=== PATIENT | male | born 1950 | race Hispanic/Latino ===

== ENCOUNTER 2019-08-06 11:00 | Inpatient (IN) | payer OTHER, MEDICARE ==
[~2019-08-06] VITALS: Ht 185.4 cm; Wt 101.7 kg
[2019-08-06 11:33] LABS: BASOPHILS % (AUTO) 0.6 % (0.0-5.0); EOSINOPHILS % (AUTO) 1.9 % (0.0-8.0); HEMATOCRIT 41.9 % (42-54); LYMPHOCYTES % (AUTO) 13.4 % (21.0-51.0); MEAN CORPUSCULAR HEMOGLOBIN 29.8 pg (27.0-33.0); MEAN CORPUSCULAR HGB CONC 35.1 g/dL (32.0-36.0); MEAN CORPUSCULAR VOLUME 84.8 fL (79-99); MONOCYTES % (AUTO) 8.5 % (3.0-13.0); NEUTROPHILS % (AUTO) 75.3 % (40.0-77.0); PLATELET COUNT (AUTO) 269 K/uL (130-400); RED BLOOD CELL COUNT(AUTO) 4.94 MIL/uL (4.50-6.20); RED CELL DISTRIBUTION WIDTH 15.3 % (11.0-15.5); WHITE BLOOD COUNT (AUTO) 7.9 K/uL (4.8-10.8)
[2019-08-06 11:51] LABS: INR 1.06 (0.85-1.15); PARTIAL THROMBOPLASTIN TIME 26.7 SEC (26.3-35.5); PROTHROMBIN TIME 11.4 SEC (9.6-11.6)
[2019-08-06 11:56] LABS: CREATININE 1.5 mg/dL (0.5-1.5); POTASSIUM 3.6 mmol/L (3.5-5.1)
[2019-08-06 12:09] LABS: ALBUMIN 3.4 g/dL (3.5-5.0); TOTAL PROTEIN, SERUM 7.3 g/dL (6.0-8.3)
[2019-08-06 12:10] LABS: BILIRUBIN,DIRECT 15.2 mg/dL (0.0-0.3); BILIRUBIN,TOTAL 18.9 mg/dL (0.2-1.0)
[2019-08-06] MEDS ORDERED: ZOSYN 3.375GM+NS 50ML 50 ML IV ONE (14:42)
[2019-08-06 17:49] VITALS: BP 126/68
[2019-08-06 20:00] VITALS: BP 140/72
[2019-08-06] MEDS ORDERED: ONDANSETRON 4 MG TABLET PO PRN (20:00)
[2019-08-06] MEDS ORDERED: POTASSIUM CHLORIDE 20 MEQ/100 ML BAG IV SCH (21:00)
[2019-08-06] MEDS: LACTATED RINGERS 1000ML 1,000 ML IV SCH (21:16)
[2019-08-06] MEDS: ZOSYN 3.375GM+NS 50ML 50 ML IV SCH (23:22)
[2019-08-06 23:54] VITALS: BP 127/58
[2019-08-07] VITALS (24 sets, daily range): BP systolic 114–171; BP diastolic 54–87
[2019-08-07] MEDS: LACTATED RINGERS 1000ML 1,000 ML IV SCH ×3 (02:40→22:40)
[2019-08-07 04:43] LABS: HEMATOCRIT 38.5 % (42-54); MEAN CORPUSCULAR HEMOGLOBIN 29.4 pg (27.0-33.0); MEAN CORPUSCULAR HGB CONC 34.8 g/dL (32.0-36.0); MEAN CORPUSCULAR VOLUME 84.4 fL (79-99); PLATELET COUNT (AUTO) 236 K/uL (130-400); RED BLOOD CELL COUNT(AUTO) 4.56 MIL/uL (4.50-6.20); RED CELL DISTRIBUTION WIDTH 15.5 % (11.0-15.5); WHITE BLOOD COUNT (AUTO) 7.1 K/uL (4.8-10.8)
[2019-08-07 05:13] LABS: ALBUMIN 2.8 g/dL (3.5-5.0); CREATININE 1.6 mg/dL (0.5-1.5); MAGNESIUM 1.8 mg/dL (1.80-2.40); POTASSIUM 3.9 mmol/L (3.5-5.1); TOTAL PROTEIN, SERUM 6.7 g/dL (6.0-8.3)
[2019-08-07 05:19] LABS: BILIRUBIN,TOTAL 16.6 mg/dL (0.2-1.0)
[2019-08-07] MEDS: ZOSYN 3.375GM+NS 50ML 50 ML IV SCH ×3 (06:52→23:00)
[2019-08-07] MEDS ORDERED: IOHEXOL-350 50ML VIAL IV ONE (07:52)
[2019-08-07] MEDS ORDERED: INDOMETHACIN 50 MG SUPP.RECT RC SCH (08:15)
[2019-08-07] MEDS ORDERED: PROPOFOL 10 MG/ML 20ML VIAL IV ONE ×2 (08:17→08:38)
[2019-08-07] MEDS ORDERED: SUCCINYLCHOLINE 200MG/10ML SYR ONE (08:17)
[2019-08-07] MEDS ORDERED: GLUCAGON 1MG KIT 1 MG ML ONE ×2 (08:37→09:24)
[2019-08-07] MEDS ORDERED: EPHEDRINE SULFATE 50 MG/ML AMPULE ONE (08:48)
--- NOTE | 2019-08-07 11:10 | NUR ---
POST ERCP PATIENT RECEIVED FROM GI LAB IN STABLE CONDITION. HE IS AWAKE AND ALERT WITH NO COMPLAINTS AT THIS TIME. POST OP V/S HAVE BEEN INITIATED. HE HAS BEEN ORIENTED TO ROOM AND USE OF CALL LIGHT. WILL CONTINUE TO MONITOR.
--- NOTE | 2019-08-07 11:22 | NUR ---
INITIAL SW spoke with patient. Patient states he lives with spouse, Amairani Tyler, [phone]. Emergency contact is daughter, Lili Tyler, [phone]. No home services. DME: [employer]. Patient states she is able to complete ADL's and drives. PCP is Dr. Donnie Ahn. Pharmacy is [facility] located in [place]. DCP is home. Addendum: 08/07/19 at 1124 by DONTA RAY SS Amended: Links added.
--- NOTE | 2019-08-07 12:19 | NUR ---
RD NOTIFICATION Pt admitted for Choledocolithiasis. Pt pending GI evaluation, MRI of abdomen. When medically feasible, recommend advance diet as tolerated to GI soft, low fat diet order. Noted, Lipase levels at 1638. RD to continue to monitor. Please notify PRINCESS as additional nutrition concerns arise. Addendum: 08/07/19 at [address] RD Amended: Links added.
[2019-08-08 04:00] VITALS: BP 137/64
[2019-08-08] MEDS: LACTATED RINGERS 1000ML 1,000 ML IV SCH ×2 (05:20→18:40)
[2019-08-08] MEDS: ZOSYN 3.375GM+NS 50ML 50 ML IV SCH ×3 (05:51→22:03)
[2019-08-08 08:55] VITALS: BP 129/73
[2019-08-08] MEDS ORDERED: LISI1TAB51 PO (10:46)
[2019-08-08] MEDS ORDERED: PRAV80TA21 PO (10:46)
[2019-08-08 14:31] VITALS: BP 144/67
[2019-08-08 17:01] VITALS: BP 138/78
[2019-08-08 20:00] VITALS: BP 144/77
[2019-08-09] VITALS (20 sets, daily range): BP systolic 110–163; BP diastolic 60–85
[2019-08-09] MEDS: LACTATED RINGERS 1000ML 1,000 ML IV SCH ×3 (01:20→21:20)
[2019-08-09 03:45] LABS: HEMATOCRIT 35.1 % (42-54); MEAN CORPUSCULAR HGB CONC 35.3 g/dL (32.0-36.0); MEAN CORPUSCULAR VOLUME 84.8 fL (79-99); PLATELET COUNT (AUTO) 211 K/uL (130-400); RED BLOOD CELL COUNT(AUTO) 4.14 MIL/uL (4.50-6.20); RED CELL DISTRIBUTION WIDTH 16.1 % (11.0-15.5); WHITE BLOOD COUNT (AUTO) 6.6 K/uL (4.8-10.8)
[2019-08-09] MEDS: ZOSYN 3.375GM+NS 50ML 50 ML IV SCH ×3 (05:36→23:46)
[2019-08-09 06:21] LABS: ALBUMIN 2.6 g/dL (3.5-5.0); CREATININE 1.5 mg/dL (0.5-1.5); MAGNESIUM 1.8 mg/dL (1.80-2.40); POTASSIUM 3.6 mmol/L (3.5-5.1); TOTAL PROTEIN, SERUM 6.1 g/dL (6.0-8.3)
[2019-08-09 06:33] LABS: BILIRUBIN,TOTAL 16.4 mg/dL (0.2-1.0)
[2019-08-09] MEDS ORDERED: IOHEXOL-350 50ML VIAL IV ONE (07:57)
[2019-08-09] MEDS ORDERED: INDOMETHACIN 50 MG SUPP.RECT RC SCH (09:00)
[2019-08-09] MEDS ORDERED: PROPOFOL 10 MG/ML 20ML VIAL IV ONE ×2 (09:06→09:23)
--- NOTE | 2019-08-09 10:25 | NUR ---
PROCEDURE REPORT RECEIVED FROM ALEX RN (PACU). PATIENT S/P EUS WITHOUT ERCP BY DR. KEYS. MASS IDENTIFIED IN THE PANCREATIC HEAD. BIOPSY SPECIMEN COLLECTED. PATIENT STABLE AT THIS TIME.
[2019-08-09] MEDS ORDERED: IOHEXOL 350 MG/ML 100ML INFUS..BTL IV ONE (12:05)
--- NOTE | 2019-08-09 16:30 | NUR ---
MD ROSA ISELA HOWARD ASSESSED PATIENT AND DISCUSSED EUS AND CT SCAN RESULTS. NOTIFIED PATIENT OF MASS TO HEAD OF PANCREAS. INSTRUCTED PATIENT TO FOLLOW UP IN OFFICE IN 1 WEEK FOR BIOPSY RESULTS AND WILL REFER PATIENT TO SPECIALIST FOR REMOVAL OF MASS. PATIENT'S DAUGHTER (MARGI) MADE AWARE. PATIENT VOICED UNDERSTANDING.
[2019-08-09] MEDS: ACETAMINOPHEN 325 MG TAB PO PRN (20:11)
[2019-08-10] VITALS (7 sets, daily range): BP systolic 128–164; BP diastolic 54–82
[2019-08-10] MEDS: LACTATED RINGERS 1000ML 1,000 ML IV SCH ×3 (03:53→17:38)
[2019-08-10] MEDS: ZOSYN 3.375GM+NS 50ML 50 ML IV SCH ×3 (05:59→22:34)
[2019-08-10] MEDS: ATORVASTATIN CALCIUM 20 MG TABLET PO SCH (21:00)
[2019-08-10] MEDS: ACETAMINOPHEN 325 MG TAB PO PRN (22:33)
[2019-08-11] VITALS (24 sets, daily range): BP systolic 139–182; BP diastolic 55–93
[2019-08-11] MEDS: LACTATED RINGERS 1000ML 1,000 ML IV SCH ×4 (00:22→20:08)
[2019-08-11 03:45] LABS: HEMATOCRIT 31.6 % (42-54); MEAN CORPUSCULAR HEMOGLOBIN 29.6 pg (27.0-33.0); MEAN CORPUSCULAR HGB CONC 35.8 g/dL (32.0-36.0); MEAN CORPUSCULAR VOLUME 82.7 fL (79-99); PLATELET COUNT (AUTO) 209 K/uL (130-400); RED BLOOD CELL COUNT(AUTO) 3.82 MIL/uL (4.50-6.20); WHITE BLOOD COUNT (AUTO) 5.8 K/uL (4.8-10.8)
[2019-08-11 03:58] LABS: ALBUMIN 2.1 g/dL (3.5-5.0); BILIRUBIN,TOTAL 14.1 mg/dL (0.2-1.0); CREATININE 1.4 mg/dL (0.5-1.5); MAGNESIUM 1.6 mg/dL (1.80-2.40); POTASSIUM 3.4 mmol/L (3.5-5.1); TOTAL PROTEIN, SERUM 5.4 g/dL (6.0-8.3)
[2019-08-11] MEDS: ZOSYN 3.375GM+NS 50ML 50 ML IV SCH ×3 (06:27→23:14)
[2019-08-11] MEDS ORDERED: IOHEXOL-350 50ML VIAL IV ONE (07:48)
[2019-08-11] MEDS: LISINOPRIL 20 MG TABLET PO SCH (09:00)
[2019-08-11] MEDS: HYDROCHLOROTHIAZIDE 25 MG TABLET PO SCH (09:00)
[2019-08-11] MEDS ORDERED: INDOMETHACIN 50 MG SUPP.RECT RC SCH (10:45)
[2019-08-11] MEDS ORDERED: MIDAZOLAM HCL 1 MG/ML 2ML VIAL ONE (10:45)
[2019-08-11] MEDS ORDERED: LIDOCAINE PF 2% 5ML ABBOJECT ONE (10:45)
[2019-08-11] MEDS ORDERED: PROPOFOL 10 MG/ML 20ML VIAL IV ONE (10:45)
[2019-08-11] MEDS ORDERED: SUCCINYLCHOLINE CHLORIDE 20 MG/ML 10 ML VIAL ONE (10:45)
[2019-08-11] MEDS ORDERED: ROCURONIUM 10MG/1ML SYR 10 MG/ML ML ONE (10:46)
[2019-08-11] MEDS ORDERED: FENTANYL CITRATE PF 50 MCG/1 ML 2ML VIAL ONE (10:46)
[2019-08-11] MEDS ORDERED: ONDANSETRON HCL 4 MG/2 ML VIAL ONE (10:48)
[2019-08-11] MEDS: MAGNESIUM 2GM PREMIX 50ML 50 ML IV SCH ×2 (11:30→15:25)
[2019-08-11] MEDS ORDERED: GLYCOPYRROLATE 0.2 MG/ML 5 ML VIAL ONE (12:08)
[2019-08-11] MEDS ORDERED: HYDRALAZINE HCL 20 MG/ML VIAL ONE (13:10)
[2019-08-11] MEDS: ATORVASTATIN CALCIUM 20 MG TABLET PO SCH (20:07)
[2019-08-12] MEDS: LACTATED RINGERS 1000ML 1,000 ML IV SCH ×2 (02:42→08:53)
[2019-08-12 04:00] VITALS: BP 126/58
[2019-08-12 05:09] LABS: HEMATOCRIT 33.7 % (42-54); MEAN CORPUSCULAR HEMOGLOBIN 28.7 pg (27.0-33.0); PLATELET COUNT (AUTO) 192 K/uL (130-400); RED BLOOD CELL COUNT(AUTO) 4.11 MIL/uL (4.50-6.20); RED CELL DISTRIBUTION WIDTH 16.4 % (11.0-15.5); WHITE BLOOD COUNT (AUTO) 6.8 K/uL (4.8-10.8)
[2019-08-12 05:16] LABS: BAND NEUTROPHILS % (MANUAL) 4 % (0-2); LYMPHOCYTES % (MANUAL) 8 % (22-44); MAN.DIFF COMMENT-IMPRESSION MANUAL DIFFERENTIAL; MONOCYTES % (MANUAL) 12 % (2-9); SEGMENTED NEUTROPHILS % 76 % (40-70)
[2019-08-12 05:17] LABS: PLATELET MORPHOLOGY COMMENT ADEQUATE
[2019-08-12 05:30] LABS: ALBUMIN 2.1 g/dL (3.5-5.0); BILIRUBIN,TOTAL 15.1 mg/dL (0.2-1.0); CREATININE 1.4 mg/dL (0.5-1.5); POTASSIUM 3.3 mmol/L (3.5-5.1); TOTAL PROTEIN, SERUM 5.3 g/dL (6.0-8.3)
[2019-08-12] MEDS: ZOSYN 3.375GM+NS 50ML 50 ML IV SCH (06:13)
[2019-08-12 08:27] VITALS: BP 131/69
[2019-08-12] MEDS: LISINOPRIL 20 MG TABLET PO SCH (08:52)
[2019-08-12] MEDS: HYDROCHLOROTHIAZIDE 25 MG TABLET PO SCH (08:53)
[2019-08-12 11:16] VITALS: BP 143/75
== END 2019-08-12 14:43 | disposition home or self-care (01) | DRG 435 ==
LOC: EDH 11:00 → EDHIP 13:58 → 4DH 16:45 → 4AH 08-07 09:11
PROVIDERS: ADMIT Internal Medicine Infectious Disease; ATTEND Internal Medicine Infectious Disease
PROC: 0F798DZ Dilation of Common Bile Duct with Intraluminal Device, Via Natural or Artificial Opening Endoscopic (ICD-10-PCS; 2019-08-07)
PROC: 0FBG8ZX Excision of Pancreas, Via Natural or Artificial Opening Endoscopic, Diagnostic (ICD-10-PCS; 2019-08-09)
PROC: 0F798DZ Dilation of Common Bile Duct with Intraluminal Device, Via Natural or Artificial Opening Endoscopic (ICD-10-PCS; principal; 2019-08-11)
DX: C25.0 Malignant neoplasm of head of pancreas (principal); K83.1 Obstruction of bile duct; E66.9 Obesity, unspecified; E78.5 Hyperlipidemia, unspecified; I12.9 Hypertensive chronic kidney disease with stage 1 through stage 4 chronic kidney disease, or unspecified chronic kidney disease; R53.81 Other malaise; N18.9 Chronic kidney disease, unspecified; Z68.29 Body mass index [BMI] 29.0-29.9, adult; K31.89 Other diseases of stomach and duodenum; T18.3XXS Foreign body in small intestine, sequela; Y92.89 Other specified places as the place of occurrence of the external cause
CPT/HCPCS: 36415; 43274; 45385; 72195; 74176; 74178; 74181; 74330; 76705; 80048; 80053; 80076; 82378; 82550; 83690; 83735; 84484; 85025; 85027; 85610; 85730; 86316; 88173; 88305; 88341; 88342; 93005; A4606; C1769; C2625; G0378; J0330; J0360; J1610; J2001; J2250; J2405; J2543; J2704; J3010; J3475; J3480; J3490; J7030; J7120; Q9967

== ENCOUNTER → 2021-10-23 | Outpatient (CLI) | payer OTHER, MEDICARE ==
[~2021-10-23] MED LIST: LISI1TAB51 PO; PRAV80TA21 PO
== END | disposition home or self-care (01) ==
LOC: SHCH 10:30
PROVIDERS: ATTEND Internal Medicine Cardiovascular Disease
DX: R94.39 Abnormal result of other cardiovascular function study (principal); I10 Essential (primary) hypertension; E78.5 Hyperlipidemia, unspecified
CPT/HCPCS: 93306

== ENCOUNTER 2023-05-14 14:55 | Emergency (ER) | payer OTHER, MEDICARE ==
[~2023-05-14] VITALS: Ht 172.7 cm; Wt 88.5 kg
[2023-05-14] MEDS ORDERED: CEFTRIAXONE 1G VIAL IVPB ONE (17:30)
[2023-05-14] MEDS ORDERED: 0.9%NACL 1000ML 1,000 ML IV ONE (17:30)
[2023-05-14 17:33] LABS: BASOPHILS # (AUTO) 0.03 K/uL (0.00-0.20); BASOPHILS % (AUTO) 0.3 % (0.0-5.0); EOSINOPHILS # (AUTO) 0.26 K/uL (0.00-0.70); EOSINOPHILS % (AUTO) 2.9 % (0.0-8.0); HEMATOCRIT 39.5 % (42-54); IMMATURE GRANULOCYTE ABSOLUTE 0.04 K/uL (0-1); LYMPHOCYTES # (AUTO) 1.3 K/uL (1.0-4.8); LYMPHOCYTES % (AUTO) 14.9 % (21.0-51.0); MEAN CORPUSCULAR HEMOGLOBIN 26.4 pg (27.0-33.0); MEAN CORPUSCULAR HGB CONC 32.4 g/dL (32.0-36.0); MEAN CORPUSCULAR VOLUME 81.4 fL (79-99); MONOCYTES # (AUTO) 0.6 K/uL (0.1-1.0); MONOCYTES % (AUTO) 6.3 % (3.0-13.0); NEUTROPHILS # (AUTO) 6.8 K/uL (1.8-7.7); NEUTROPHILS % (AUTO) 75.2 % (40.0-77.0); PLATELET COUNT (AUTO) 177 K/uL (130-400); RED BLOOD CELL COUNT(AUTO) 4.85 MIL/uL (4.50-6.20); RED CELL DISTRIBUTION WIDTH 13.5 % (11.0-15.5)
[2023-05-14 17:53] LABS: ALBUMIN 3.7 g/dL (3.5-5.0); BILIRUBIN,TOTAL 0.5 mg/dL (0.2-1.0)
[2023-05-14 19:22] LABS: ADD UA MICROSCOPIC YES; APPEARANCE,URINE CLEAR (CLEAR); BILIRUBIN,URINE NEGATIVE (NEGATIVE); COLOR,URINE YELLOW (YELLOW); GLUCOSE, URINE (UA) NEGATIVE (NEGATIVE); KETONES,URINE NEGATIVE (NEGATIVE); LEUKOCYTE ESTERASE ,URINE NEGATIVE Leu/uL (NEGATIVE); NITRATE,URINE NEGATIVE (NEGATIVE); OCCULT BLOOD,URINE NEGATIVE (NEGATIVE); PH,URINE 5.5 (5.0-8.0); PROTEIN,URINE 10 mg/dL (NEGATIVE); UROBILINOGEN,URINE 0.2 mg/dL (0.2-1.0)
[2023-05-14 19:27] LABS: BACTERIA,URINE RARE /HPF (None Seen); MUCUS,URINE RARE LPF (None Seen); SQUAMOUS EPITHELIAL CELL,UR RARE /HPF (0-2)
[2023-05-14] MEDS ORDERED: AMOX1TAB16 PO (19:32)
[2023-05-14] MEDS ORDERED: DOXY-469 PO (19:32)
[2023-05-14 20:15] VITALS: BP 128/92; PULSE 90; RESP 18; O2SAT 97
== END 2023-05-14 20:33 | disposition home or self-care (01) ==
LOC: EDH 14:55
DX: J18.9 Pneumonia, unspecified organism (principal); G57.83 Other specified mononeuropathies of bilateral lower limbs; I10 Essential (primary) hypertension; Z79.899 Other long term (current) drug therapy; Z98.890 Other specified postprocedural states
CPT/HCPCS: 99285; 96365; 71045; 96366; 84484; 80053; 83690; 85025; 83605; 81001; 36415; 93005; J0696